=== PATIENT | female | born 2005 | race Caucasian/White ===

== ENCOUNTER 2023-10-07 15:05 | Emergency (ER) | payer OTHER ==
[~2023-10-07] VITALS: Ht 154.9 cm; Wt 72.6 kg
[2023-10-07 15:09] VITALS: BP_SYST 116; PULSE 87; RESP 17; TEMP 98.8; O2SAT 97
[2023-10-07] MEDS: MAG-AL HYDROX/SIMETH 30 ML UDC PO ONE (15:15)
[2023-10-07] MEDS: FAMOTIDINE 20 MG TABLET PO ONE (15:15)
[2023-10-07] MEDS: ONDANSETRON 4 MG ODT TAB PO ONE (15:15)
[2023-10-07 16:04] LABS: BASOPHILS % (AUTO) 0.5 % (0.0-2.0); HEMATOCRIT 41.8 % (36-48); HEMOGLOBIN 14.3 g/dL (12.0-16.0); LYMPHOCYTES # (AUTO) 1.7 K/uL (1.0-5.5); LYMPHOCYTES % (AUTO) 40.6 % (20.5-51.5); MEAN CORPUSCULAR HEMOGLOBIN 30 pg (27-31); MEAN CORPUSCULAR HGB CONC 34 % (32-36); MEAN CORPUSCULAR VOLUME 88 fL (79.0-98.0); MONOCYTES # (AUTO) 0.4 K/uL (0.0-1.0); MONOCYTES % (AUTO) 10.3 % (1.7-9.3); NEUTROPHILS % (AUTO) 48.6 % (40.0-70.0); PLATELET COUNT (AUTO) 280 K/uL (130-430); RED BLOOD CELL COUNT(AUTO) 4.77 MIL/uL (4.2-6.2); WHITE BLOOD COUNT (AUTO) 4.1 K/uL (4.5-11.0)
[2023-10-07 16:42] LABS: CALCIUM 9.3 mg/dL (8.4-11.0); CREATININE 0.78 mg/dL (0.55-1.30); POTASSIUM 3.3 mmol/L (3.5-5.1)
[2023-10-07 16:44] LABS: ALBUMIN 3.9 g/dL (3.4-4.8); BILIRUBIN,DIRECT 0.1 mg/dL (0.0-0.3); TOTAL BILIRUBIN 0.2 mg/dL (0.0-1.0); TOTAL PROTEIN, SERUM 8.3 g/dL (6.4-8.3)
[2023-10-07 18:58] LABS: HCG,QUAL RESULT NEGATIVE (NEGATIVE)
[2023-10-07] MEDS ORDERED: ONDA-8 TL (19:06)
[2023-10-07] MEDS ORDERED: POLY17PO4 PO (19:07)
[2023-10-07 19:14] VITALS: BP_SYST 116; PULSE 87; RESP 17; TEMP 98.8; O2SAT 97
== END 2023-10-07 19:14 | disposition home or self-care (01) ==
LOC: SED 15:05
DX: K29.70 Gastritis, unspecified, without bleeding (principal); K59.00 Constipation, unspecified; R10.13 Epigastric pain; R11.2 Nausea with vomiting, unspecified; R19.7 Diarrhea, unspecified; Z79.899 Other long term (current) drug therapy
CPT/HCPCS: 99284; 80076; 80048; 84703; 83690; 85025; 36415; Q0162